=== PATIENT | female | born 1985 ===

== ENCOUNTER 2017-03-22 18:27 | Emergency (ER) | payer OTHER, SELFPAY ==
[2017-03-22 18:52] VITALS: RESP 20
[2017-03-22 18:55] VITALS: BP 125/72; PULSE 78; TEMP 96.7; O2SAT 99
--- NOTE | 2017-03-22 19:16 | ED PDOC ---
HPI: CCC, URI, Sore Throat Time Seen by Provider: 03/22/17 19:06 Chief Complaint (Nursing): ENT Problem Chief Complaint (Provider): ear pain History Per: Patient Have you had recent travel within the past 21 days to any of the following countries: [place], [place], [place] or [place]?: No Onset/Duration Of Symptoms: Days (2) Current Symptoms Are (Timing): Still Present Location Of Pain: Ear(s) (left). denies: Throat, Sinus/es, Diffuse Myalgias, Headache Sick Contacts (Context): None Associated Symptoms: denies: Fever, Chills, Sore Throat, Cough, Sputum, Neck Pain, Sinus Drainage, Myalgias, Nasal Congestion, Nausea, Vomiting, Diarrhea Ear Symptoms: Left: Ear Pain, Ear Fullness, Decreased Hearing, Ear Drainage Additional Complaint(s): 32yoF in ED for eval of left ear pain x 2 days without fever or chills. admits to pain and drainage. no q-tip use or underwater. no sick contacts. Past Medical History Reviewed: Historical Data, Nursing Documentation, Vital Signs Vital Signs: Last Vital Signs Temp 96.7 F L 03/22/17 18:52 Pulse 78 03/22/17 18:52 Resp 20 03/22/17 18:52 BP 125/72 03/22/17 18:52 Pulse Ox 99 03/22/17 18:52 - Medical History PMH: No Chronic Diseases - Family History Family History: States: No Known Family Hx - Home Medications Home Medications: Ambulatory Orders Medication Instructions Recorded Amoxicillin [Amoxil 500 mg Cap] 500 mg PO BID #14 cap 03/22/17 - Allergies Allergies/Adverse Reactions: Allergies Allergy/AdvReac Type Severity Reaction Status Date / Time No Known Allergies Allergy Verified 03/22/17 18:49 Review of Systems ROS Statement: Except As Marked, All Systems Reviewed And Found Negative ENT: Positive for: Ear Pain Physical Exam - Reviewed Nursing Documentation Reviewed: Yes Vital Signs Reviewed: Yes - Physical Exam Appears: Positive for: Non-toxic, No Acute Distress Head Exam: Positive for: ATRAUMATIC, NORMAL INSPECTION, NORMOCEPHALIC Skin: Positive for: Normal Color, Warm, DRY Eye Exam: Positive for: EOMI, Normal appearance, PERRL ENT: Positive for: Other (left ear: TM is bulgding, red, white patches ottohretara noted) Neck: Positive for: Normal, Painless ROM Cardiovascular/Chest: Positive for: Regular Rate, Rhythm Respiratory: Positive for: CNT, Normal Breath Sounds Gastrointestinal/Abdominal: Positive for: Normal Exam, Bowel Sounds, Soft Back: Positive for: Normal Inspection Extremity: Positive for: Normal ROM Neurologic/Psych: Positive for: Alert, Oriented - ECG O2 Sat by Pulse Oximetry: 99 - Progress ED Course And Treament: dc: OM tx: amoxicillin advised to have pmd f./u and motrin for pain Medical Decision Making Medical Decision Making: dx: OM Disposition - Clinical Impression Clinical Impression: Otitis media - Patient ED Disposition Is Patient to be Admitted: No Counseled Patient/Family Regarding: Diagnosis, Need For Followup, Rx Given - Disposition Disposition: Routine/Home Disposition Time: 19:17 Condition: STABLE Prescriptions: Amoxicillin [Amoxil 500 mg Cap] 500 mg PO BID #14 cap Instructions: Otitis Media (ED) Print Language: AUSTRIAN
== END 2017-03-22 19:43 | disposition home or self-care (01) ==
LOC: H.ER 18:27
DX: H66.92 Otitis media, unspecified, left ear (principal)

== ENCOUNTER 2017-03-24 11:26 | Emergency (ER) | payer MEDICAID, OTHER, SELFPAY ==
--- NOTE | 2017-03-24 11:50 | ED PDOC ---
HPI: General Adult Time Seen by Provider: 03/24/17 11:36 Chief Complaint (Nursing): ENT Problem History Per: Patient Additional Complaint(s): Pt. states since 03/20/2017 she's had L earache. Pt. was seen here on 03/22/2017 and was diagnosed as having Otitis media and prescribed Amoxicillin. She has also been taking Motrin 400mg without any relief. Denies hearing changes, fever , headache. Past Medical History Reviewed: Historical Data, Nursing Documentation, Vital Signs - Medical History PMH: Denies: Diabetes - Family History Family History: States: No Known Family Hx - Home Medications Home Medications: Ambulatory Orders Medication Instructions Recorded Amoxicillin [Amoxil 500 mg Cap] 500 mg PO BID #14 cap 03/22/17 Ciprofloxacin/Dexamethasone 4 drop BID #1 bottle 03/24/17 [Ciprodex 0.3%-0.1% 7.5 Ml] Naproxen [Naprosyn] 500 mg PO BID PRN #30 tab 03/24/17 - Allergies Allergies/Adverse Reactions: Allergies Allergy/AdvReac Type Severity Reaction Status Date / Time No Known Allergies Allergy Verified 03/22/17 18:49 Review of Systems ROS Statement: Except As Marked, All Systems Reviewed And Found Negative ENT: Positive for: Ear Pain Physical Exam - Physical Exam Appears: Positive for: Well, Non-toxic, No Acute Distress Head Exam: Positive for: ATRAUMATIC, NORMAL INSPECTION, NORMOCEPHALIC Skin: Positive for: Normal Color, Warm. Negative for: Rash Eye Exam: Positive for: Normal appearance ENT: Positive for: TM Is/Are (R TM is non-erythematous, non bulging, R ear canal is clear; L TM is erythematous and bulging; L ear canal is edematous and erythematous with minimal exudate; pain with pulling on L tragus), Other (no mastoid tenderness or swelling b/l). Negative for: Pharyngeal Erythema, Tonsillar Exudate, Tonsillar Swelling Neck: Positive for: Normal, Painless ROM Neurologic/Psych: Positive for: Alert, Oriented. Negative for: Aphasia, Facial Droop - Progress ED Course And Treament: Toradol 15mg IM ordered. Pt. instructed to continue Amoxicillin as previously prescribed. Disposition - Clinical Impression Clinical Impression: Otitis externa, Otitis media - Patient ED Disposition Is Patient to be Admitted: No - Disposition Referrals: [facility] [Outside] Disposition: Routine/Home Disposition Time: 11:45 Condition: STABLE Prescriptions: Ciprofloxacin/Dexamethasone [Ciprodex 0.3%-0.1% 7.5 Ml] 4 drop BID #1 bottle Naproxen [Naprosyn] 500 mg PO BID PRN #30 tab PRN Reason: Pain Instructions: Otitis Externa (ED), Otitis Media (ED)
[2017-03-24 12:06] VITALS: BP 101/54; PULSE 80; RESP 18; TEMP 98; O2SAT 100
== END 2017-03-24 12:16 | disposition home or self-care (01) ==
LOC: H.ER 11:26
DX: H66.92 Otitis media, unspecified, left ear (principal)

== ENCOUNTER 2017-04-08 09:19 | Emergency (ER) | payer OTHER ==
[2017-04-08 10:01] VITALS: O2SAT 100
--- NOTE | 2017-04-08 10:13 | ED PDOC ---
HPI: General Adult Time Seen by Provider: 04/08/17 10:12 Chief Complaint (Nursing): Dizziness/Lightheaded Chief Complaint (Provider): dizziness History Per: Patient Additional Complaint(s): 32-year-old female presents with dizziness and sensation of room spinning that started last night. Patient has accompanying nausea with no vomiting. No fever or chills. Patient is slight headache that she rates as a 4 out of 10. Patient states 2 weeks ago she was treated for an ear infection. She denies chest pain, shortness of breath or dyspnea on exertion. Past Medical History Reviewed: Historical Data, Nursing Documentation, Vital Signs Vital Signs: Last Vital Signs Temp 97.0 F L 04/08/17 09:57 Pulse 64 04/08/17 09:57 Resp 20 04/08/17 09:57 BP 128/76 04/08/17 09:57 Pulse Ox 100 04/08/17 12:03 - Medical History PMH: No Chronic Diseases - Surgical History Surgical History: (x 1) - Family History Family History: States: No Known Family Hx - Living Arrangements Living Arrangements: With Family - Social History Current smoker - smoking cessation education provided: No Alcohol: None Drugs: Denies - Home Medications Home Medications: Ambulatory Orders Medication Instructions Recorded Amoxicillin [Amoxil 500 mg Cap] 500 mg PO BID #14 cap 03/22/17 Ciprofloxacin/Dexamethasone 4 drop BID #1 bottle 03/24/17 [Ciprodex 0.3%-0.1% 7.5 Ml] Naproxen [Naprosyn] 500 mg PO BID PRN #30 tab 03/24/17 Amoxicillin/Clavulanate [Augmentin 1 tab PO BID #20 tab 03/26/17 875 MG-125 MG] Guaifen/Phenyleph/Acetaminophn 1 tab PO BID #14 tab 03/26/17 [Mucinex Fast-Max Cold & Sinus 325 mg-200 mg-5] Meclizine [Meclizine*] 25 mg PO Q6 PRN #30 tab 04/08/17 Ondansetron [Zofran Odt] 4 mg PO ASDIR PRN #20 odt 04/08/17 - Allergies Allergies/Adverse Reactions: Allergies Allergy/AdvReac Type Severity Reaction Status Date / Time No Known Allergies Allergy Verified 04/08/17 09:57 Review of Systems ROS Statement: Except As Marked, All Systems Reviewed And Found Negative Constitutional: Negative for: Fever, Chills, Weakness Cardiovascular: Negative for: Chest Pain Gastrointestinal: Positive for: Nausea. Negative for: Vomiting, Abdominal Pain Neurological: Positive for: Headache (mild), Dizziness. Negative for: Weakness , Numbness, Incoordination, Change in Speech, Confusion, Seizures, Altered Mental Status Physical Exam - Reviewed Nursing Documentation Reviewed: Yes Vital Signs Reviewed: Yes - Physical Exam Appears: Positive for: Well, Non-toxic, No Acute Distress Skin: Negative for: Rash Eye Exam: Positive for: Normal appearance, EOMI, PERRL ENT: Positive for: Normal ENT Inspection. Negative for: Nasal Congestion Cardiovascular/Chest: Positive for: Regular Rate, Rhythm Respiratory: Positive for: Normal Breath Sounds Extremity: Positive for: Normal ROM. Negative for: Pedal Edema Neurologic/Psych: Positive for: Alert, Oriented, Gait (steady) - Laboratory Results Result Diagrams: 04/08/17 11:00 04/08/17 11:00 - ECG Interpretation Of ECG: NSR 65 bpm, no acute finding, reviewed by PA and ED attending O2 Sat by Pulse Oximetry: 100 Pulse Ox Interpretation: Normal Medical Decision Making Medical Decision Makin32 year old female with dizziness. Plan: CBC CMP Trop EKG IVF IV zofran PO meclizine Patient feels much better after meds given. Dizziness has resolved along with nausea. Patient given prescriptions for Zofran and meclizine. She was advised to follow-up with primary doctor or clinic. Disposition - Clinical Impression Clinical Impression: Vertigo - Patient ED Disposition Is Patient to be Admitted: No Counseled Patient/Family Regarding: Studies Performed, Diagnosis, Need For Followup, Rx Given - Disposition Referrals: [facility] [Outside] Disposition: Routine/Home Disposition Time: 12:51 Condition: IMPROVED Additional Instructions: Take prescription medications as directed. Follow up with clinic or primary care doctor in 2-3 days. Prescriptions: Meclizine [Meclizine*] 25 mg PO Q6 PRN #30 tab PRN Reason: Dizziness Ondansetron [Zofran Odt] 4 mg PO ASDIR PRN #20 odt PRN Reason: Nausea/Vomiting Instructions: Vertigo (ED) Forms: Ma[facility] (Pashto) Results - Lab Results Lab Results: 04/08/17 04/08/17 11:00 11:00 WBC 9.0 RBC 4.25 Hgb 13.1 Hct 37.9 MCV 89.2 MCH 30.9 MCHC 34.7 RDW 13.2 Plt Count 254 Sodium 140 Potassium 4.7 Chloride 105 Carbon Dioxide 24 Anion Gap 15 BUN 11 Creatinine 0.5 L Est GFR ( Amer) > 60 Est GFR (Non-Af Amer) > 60 Random Glucose 112 H Calcium 8.7 Total Bilirubin 0.6 AST 27 ALT 29 Alkaline Phosphatase 68 Troponin I < 0.0120 Total Protein 8.3 H Albumin 4.5 Globulin 3.8 Albumin/Globulin Ratio 1.2
[2017-04-08] MEDS ORDERED: Sodium Chloride 0.9% 1,000 ML IV STA (10:35)
[2017-04-08 11:09] LABS: HEMATOCRIT 37.9 % (34.0-47.0); MEAN CELL VOLUME 89.2 fl (81.0-99.0); MEAN CORPUSCULAR HEMOGLOBIN 30.9 pg (27.0-31.0); MEAN CORPUSCULAR HGB CONC 34.7 g/dL (33.0-37.0); RED CELL DISTRIBUTION WIDTH 13.2 % (11.5-14.5)
[2017-04-08 11:30] LABS: ALB/GLOB RATIO 1.2 (1.0-2.1); ALKALINE PHOSPHATASE 68 U/L (38-126); ALT/SGPT 29 U/L (9-52); AST/SGOT 27 U/L (14-36); BILIRUBIN,TOTAL 0.6 mg/dl (0.2-1.3); BLOOD UREA NITROGEN 11 mg/dl (7-17); CALCIUM 8.7 mg/dL (8.4-10.2); CARBON DIOXIDE 24 mmol/L (22-30); CHLORIDE 105 mmol/L (98-107); GFR AFRICAN-AMERICAN > 60; GLUCOSE,RANDOM 112 mg/dL (65-105); SODIUM 140 mmol/l (132-148); TOTAL PROTEIN 8.3 G/DL (6.3-8.2)
[2017-04-08 11:44] LABS: POTASSIUM 4.7 MMOL/L (3.6-5.0)
--- NOTE | 2017-04-08 11:51 | CARD ---
APPROVED REPORT EKG Measurement Heart [id number] <Conclusion> Normal sinus rhythm Normal ECG
[2017-04-08 13:09] VITALS: BP 115/68; PULSE 72; RESP 18; TEMP 98.9
== END 2017-04-08 13:13 | disposition home or self-care (01) ==
LOC: H.ER 09:19
DX: R42 Dizziness and giddiness (principal)
CPT/HCPCS: 80053; 81025; 84484; 85027; 93005; 96360; 99285; J2405; J7040

== ENCOUNTER 2017-04-09 18:30 | Emergency (ER) | payer OTHER ==
[2017-04-09 18:35] VITALS: BP 119/71; PULSE 81; RESP 16; TEMP 98.1; O2SAT 100
[2017-04-09] MEDS ORDERED: DiphenhydrAMINE 50 mg/ml Inj IVP STA (19:46)
[2017-04-09] MEDS ORDERED: DiphenhydrAMINE 50 mg/ml Inj ONE (19:56)
--- NOTE | 2017-04-09 20:15 | ED PDOC ---
HPI: Headache Time Seen by Provider: 04/09/17 18:49 Chief Complaint (Nursing): Dizziness/Lightheaded Chief Complaint (Provider): headache History Per: Patient History/Exam Limitations: no limitations Onset/Duration Of Symptoms: Days (x2) Current Symptoms Are (Timing): Still Present Additional Complaint(s): Kurtis Cuba is a 32 year old female who presents to the emergency department with a complaint of diffused "pressure" headaches associated with dizziness, nausea, numbness of left thigh and intermittent lower back pain ongoing for 2 days. Denied vomiting, weakness, difficulty urinating, incontinence, bloody urine, constipation, diarrhea or blurry vision. Patient stated she has been taking ibuprofen with no improvements and admitted dizziness is stress related with 15 year old child. PMD: none provided Past Medical History Reviewed: Historical Data, Nursing Documentation, Vital Signs Vital Signs: Last Vital Signs Temp 98.1 F 04/09/17 18:32 Pulse 81 04/09/17 18:32 Resp 16 04/09/17 18:32 BP 119/71 04/09/17 18:32 Pulse Ox 100 04/09/17 18:32 - Medical History PMH: Hypercholesterolemia Denies: Diabetes - Surgical History Surgical History: (x 1) - Family History Family History: States: No Known Family Hx - Home Medications Home Medications: Ambulatory Orders Medication Instructions Recorded Amoxicillin [Amoxil 500 mg Cap] 500 mg PO BID #14 cap 03/22/17 Ciprofloxacin/Dexamethasone 4 drop BID #1 bottle 03/24/17 [Ciprodex 0.3%-0.1% 7.5 Ml] Naproxen [Naprosyn] 500 mg PO BID PRN #30 tab 03/24/17 Amoxicillin/Clavulanate [Augmentin 1 tab PO BID #20 tab 03/26/17 875 MG-125 MG] Guaifen/Phenyleph/Acetaminophn 1 tab PO BID #14 tab 03/26/17 [Mucinex Fast-Max Cold & Sinus 325 mg-200 mg-5] Meclizine [Meclizine*] 25 mg PO Q6 PRN #30 tab 04/08/17 Ondansetron [Zofran Odt] 4 mg PO ASDIR PRN #20 odt 04/08/17 Acetaminophen/Butalbital/Caf 1 tab PO TID PRN #15 tab 04/09/17 [Fioricet] - Allergies Allergies/Adverse Reactions: Allergies Allergy/AdvReac Type Severity Reaction Status Date / Time No Known Allergies Allergy Verified 04/09/17 18:32 Review of Systems ROS Statement: Except As Marked, All Systems Reviewed And Found Negative (and as per HPI) Eyes: Negative for: Vision Change Gastrointestinal: Positive for: Nausea. Negative for: Vomiting, Diarrhea, Constipation Genitourinary Female: Negative for: Dysuria, Incontinence, Hematuria Musculoskeletal: Positive for: Back Pain (lower) Neurological: Positive for: Numbness (left thigh), Headache (diffused "pressure "), Dizziness. Negative for: Weakness Physical Exam - Reviewed Nursing Documentation Reviewed: Yes Vital Signs Reviewed: Yes - Physical Exam Appears: Positive for: Non-toxic, In Acute Distress Head Exam: Positive for: ATRAUMATIC, NORMOCEPHALIC Skin: Positive for: Warm, Dry Eye Exam: Positive for: EOMI, PERRL ENT: Negative for: Pharyngeal Erythema, Tonsillar Exudate Neck: Positive for: Painless ROM, Supple (no meningismus) Cardiovascular/Chest: Positive for: Regular Rate, Rhythm, Chest Non Tender. Negative for: Murmur Respiratory: Positive for: Normal Breath Sounds. Negative for: Wheezing Gastrointestinal/Abdominal: Positive for: Soft. Negative for: Tenderness Back: Positive for: Normal Inspection. Negative for: Decreased ROM Extremity: Positive for: Normal ROM. Negative for: Deformity Lymphatic: Negative for: Adenopathy Neurologic/Psych: Positive for: Alert, fundraising director II-XII (intact), Oriented (x3), Cerebellar Tests (normal), Gait (normal). Negative for: Motor/Sensory Deficits , Aphasia, Facial Droop - Laboratory Results Result Diagrams: 04/09/17 20:34 04/09/17 20:34 - ECG O2 Sat by Pulse Oximetry: 100 (RA) Pulse Ox Interpretation: Normal Medical Decision Making Medical Decision Making: Initial Impression: Headache; dizziness Differential Diagnosis: Tension headache; anxiety; migraine; electrolyte abnormality Initial Plan: * CT head without contrast * CMP * Magnesium * Phosphorous * TSH * Urine * Urine dipstick * CBC * Benadryl 25mg IVP * Reglan 10mg IVP * Toradol 15mg IVP * Tylenol 975mg PO Time: 2109 --CT head FINDINGS: Brain: Streak artifact limits evaluation of the skull base. No evidence of acute intracranial hemorrhage. Correlate clinically. No significant white matter disease. No edema. Ventricles: Unremarkable. No ventriculomegaly. Bones/joints: Unremarkable. No acute fracture. Soft tissues: Unremarkable. Sinuses: Unremarkable as visualized. No acute sinusitis. Mastoid air cells: Unremarkable as visualized. No mastoid effusion. IMPRESSION: Streak artifact limits evaluation of the skull base. No evidence of acute intracranial hemorrhage. Correlate clinically. 2100 Pt feels better. No emergently significant lab abnormalities DW pt findings and plan of care. Scribe Attestation: Documented by Annamarie Bee, acting as a scribe for Nhung Woods MD. Provider Scribe Attestation: All medical record entries made by the Scribe were at my direction and personally dictated by me. I have reviewed the chart and agree that the record accurately reflects my personal performance of the history, physical exam, medical decision making, and the department course for this patient. I have also personally directed, reviewed, and agree with the discharge instructions and disposition. Disposition - Clinical Impression Clinical Impression: Headache Counseled Patient/Family Regarding: Studies Performed, Diagnosis, Need For Followup, Rx Given - Disposition Referrals: [facility] [Outside] (CALL TOMORROW TO SETUP APPOINTMENT WITHIN A WEEK) Disposition: Routine/Home Disposition Time: 21:00 Condition: IMPROVED Prescriptions: Acetaminophen/Butalbital/Caf [Fioricet] 1 tab PO TID PRN #15 tab PRN Reason: Headache Instructions: Acute Headache (ED), Stress (ED)
[2017-04-09 20:40] LABS: BASO # 0.1 K/uL (0.0-0.2); BASO % 0.9 % (0.0-2.0); EOS # 0.2 K/uL (0.0-0.7); HEMOGLOBIN 12.3 g/dL (12.0-16.0); LYMPH # 2.3 K/uL (1.0-4.3); LYMPH % 29.5 % (20.0-40.0); MEAN CELL VOLUME 87.7 fl (81.0-99.0); MEAN CORPUSCULAR HEMOGLOBIN 30.9 pg (27.0-31.0); MEAN CORPUSCULAR HGB CONC 35.2 g/dL (33.0-37.0); MEAN PLATELET VOLUME 9.4 fl (7.2-11.7); MONO # 0.5 K/uL (0.0-0.8); MONO % 6.2 % (0.0-10.0); NEUT # 4.7 K/uL (1.8-7.0); NEUT % 60.4 % (50.0-75.0); NRBC % 0.1 % (0.0-0.0); RBC 3.97 Mil/uL (3.80-5.20); RED CELL DISTRIBUTION WIDTH 12.9 % (11.5-14.5); WHITE BLOOD COUNT 7.8 K/uL (4.8-10.8)
[2017-04-09 20:56] LABS: ALB/GLOB RATIO 1.2 (1.0-2.1); ALT/SGPT 24 U/L (9-52); AST/SGOT 27 U/L (14-36); BLOOD UREA NITROGEN 14 mg/dl (7-17); CALCIUM 9.1 mg/dL (8.4-10.2); GFR AFRICAN-AMERICAN > 60; GFR NON-AFRICAN AMERICAN > 60; MAGNESIUM 1.7 MG/DL (1.6-2.3)
--- NOTE | 2017-04-10 07:31 | CT ---
PROCEDURE: CT HEAD WITHOUT CONTRAST. HISTORY: oliver dizziness COMPARISON: None available. TECHNIQUE: Axial computed tomography images were obtained through the head/brain without intravenous contrast. Radiation dose: Total exam DLP = mGy-cm. This CT exam was performed using one or more of the following dose reduction techniques: Automated exposure control, adjustment of the mA and/or kV according to patient size, and/or use of iterative reconstruction technique. FINDINGS: HEMORRHAGE: No intracranial hemorrhage. BRAIN: No mass effect or edema. No atrophy or chronic microvascular ischemic changes. VENTRICLES: Unremarkable. No hydrocephalus. CALVARIUM: Unremarkable. PARANASAL SINUSES: Unremarkable as visualized. No significant inflammatory changes. MASTOID AIR CELLS: Unremarkable as visualized. No inflammatory changes. OTHER FINDINGS: None. IMPRESSION: Normal CT of the Head. Concordant results (preliminary interpretation) provided by [facility]. Procedure Completed: 20:46 Preliminary ([facility]) Report: Dictated and Authenticated: 21:10 Final Interpretation: 07:32. April 10, 2017.
== END 2017-04-09 22:39 | disposition home or self-care (01) ==
LOC: H.ER 18:30
DX: R51 Headache (principal); R20.2 Paresthesia of skin; E78.00 Pure hypercholesterolemia, unspecified
CPT/HCPCS: 70450; 80053; 81025; 83735; 84100; 84443; 85025; 96374; 96375; 99284; J1200; J1885; J2765